=== PATIENT | male | born 1970 ===

== ENCOUNTER 2019-02-27 22:51 | Emergency (ER) | payer SELFPAY ==
[2019-02-27] MEDS ORDERED: HYDROCODONE/APAP 10/325 TABLET PO ONE (22:57)
--- NOTE | 2019-02-27 23:03 | Emergency Department Record ---
History of Present Illness - General Chief complaint: Extremity Problem Stated complaint: RT ANKLE INJURY Time Seen by Provider: 02/27/19 22:57 Source: Patient Mode of Arrival: Ambulatory Limitations: No limitations - History of Present Illness Initial comments: 48 yo male presents to ED for evaluation of right lateral ankle pain following injury that occurred when jumping down from a bench at home he was using for changing a light bulb. Patient denies injury to the foot or above the ankle. Patient has been unable to weight bear following injury, denies health problems other than recent hernia repair at his baseline. MD Complaint: Joint pain Onset/Timin -: Minutes(s) Location: Right, Ankle History of Same: No -: Yes Arthralgia Radiation: Proximal Quality: Aching Consistency: Constant Improves with: Nothing Worsens with: Palpation, Weight bearing Associated Symptoms: Denies other symptoms - Related Data Home Medications Medication Instructions Recorded Confirmed Last Taken No Home Med [NO HOME MEDS] 02/27/19 02/27/19 Unknown Allergies Allergy/AdvReac Type Severity Reaction Status Date / Time cephalexin [From Keflex] Allergy HIVES Verified 02/27/19 23:01 Review of Systems Constitutional: Denies: Chills, Fever, Malaise, Night sweats Eyes: Denies: Eye discharge, Eye pain ENT: Denies: Congestion, Ear pain, Epistaxis Respiratory: Denies: Cough, Dyspnea Cardiovascular: Denies: Chest pain, Dyspnea on exertion Endocrine: Denies: Fatigue, Heat or cold intolerance Gastrointestinal: Denies: Abdominal pain, Nausea, Vomiting Genitourinary: Denies: Incontinence, Retention Musculoskeletal: Reports: Arthralgia, Joint swelling. Denies: Back pain, Gout Skin: Denies: Bruising, Change in color Neurological: Denies: Abnormal gait, Confusion, Headache, Seizure Psychiatric: Denies: Anxiety Hematological/Lymphatic: Denies: Anemia, Blood Clots Physical Exam - General General Appearance: Alert, Oriented x3, Cooperative, Moderate distress Limitations: No limitations - Head Head exam: Atraumatic, Normocephalic, Normal inspection Head exam detail: negative: Abrasion, Contusion, Hawkins's sign, General tenderness, Hematoma, Laceration - Eye Eye exam: Normal appearance. negative: Conjunctival injection, Periorbital s welling, Periorbital tenderness, Scleral icterus - ENT Ear exam: negative: Auricular hematoma, Auricular trauma Nasal Exam: negative: Active bleeding, Discharge, Dried blood, Foreign body Mouth exam: negative: Drooling, Laceration, Muffled voice, Tongue elevation - Neck Neck exam: Normal inspection. negative: Meningismus, Tenderness - Respiratory Respiratory exam: Normal lung sounds bilaterally. negative: Rales, Respiratory distress, Rhonchi, Stridor - Cardiovascular Cardiovascular Exam: Regular rate, Normal rhythm, Normal heart sounds Peripheral Pulses: 3+: Dorsalis Pedis (R) - GI/Abdominal GI/Abdominal exam: Soft. negative: Rebound, Rigid, Tenderness - Rectal Rectal exam: Deferred - exam: Deferred - Extremities Extremities exam: Tenderness, Other (TTP over the lateral ankle, achilles intact, no pain over the foot on examination, no calf pain on examination.). negative: Calf tenderness, Pedal edema - Back Back exam: Denies: CVA tenderness (R), CVA tenderness (L) - Neurological Neurological exam: Alert, Normal gait, Oriented X3 - Psychiatric Psychiatric exam: Normal affect, Normal mood - Skin Skin exam: Normal color. negative: Abrasion Type of lesion: negative: abrasion Course Vital Signs 02/27/19 22:55 Pulse Rate [ 105 H Pulse Ox Probe] Respiratory 28 H Rate Blood Pressure 110/77 [Left Arm] Pulse Ox 98 - Reevaluation(s) Reevaluation #1: 02/27/19 23:32 Right Foot: No acute fracture Right Ankle: No acute fracture Patient was updated on his radiology results, will place in air splint with crutches as directed. With encouragement, the patient is able to dorsiflex/plantar flex the foot and ankle, achilles is intact. Counseled the patient re: ice and ibuprofen as needed for his symptoms. Patient appears stable for discharge at this time. Disposition Disposition: Discharge Clinical Impression: Right ankle sprain Qualifiers: Encounter type: initial encounter Involved ligament of ankle: anterior talofibular ligament Qualified Code(s): S93.491A - Sprain of other ligament of right ankle, initial encounter Disposition: Home, Self-Care Condition: (2) Stable Instructions: Ankle Sprain (ED) Additional Instructions: Return to ED if your symptoms worsen or if you have any concerns. Ibuprofen, Ice as directed. Air splint as directed. Follow-up with your family doctor in 3-5 days as directed. Forms: Patient Portal Access Time of Disposition: 23:34 Quality - Quality Measures Quality Measures: N/A - Blood Pressure Screening Does Patient Have Any of the Following: No Blood Pressure Classification: Normal BP Reading Systolic Measurement: 110 Diastolic Measurement: 77 Screening for High Blood Pressure: < Normal BP, F/U Not Required > [[id number]]
--- NOTE | 2019-02-28 13:19 | RADIOLOGY REPORT ---
EXAM: RIGHT ANKLE COMPLETE HISTORY: PAIN POST TWISTING INJURY. TECHNIQUE: Three views of the right ankle are obtained. Comparison: Same day three views of the right foot. Encounter: Initial. FINDINGS: There is normal bone mineralization. No acute fracture, dislocation or destructive bone lesion is seen. The ankle mortise joint is symmetric. The hindfoot and mid foot articulations are intact, to the extent visualized. No suspicious soft tissue abnormality. IMPRESSION: NO ACUTE FRACTURE NOR DISLOCATION IDENTIFIED. JOB NUMBER: [id number] [facility]
--- NOTE | 2019-02-28 13:22 | RADIOLOGY REPORT ---
EXAM: RIGHT FOOT, THREE VIEWS HISTORY: PAIN POST TWISTING INJURY. TECHNIQUE: Three views of the right foot were obtained. Comparison: Same day three views of the right ankle. Encounter: Initial. FINDINGS: There is normal bone mineralization. No convincing acute fracture, dislocation, or destructive bone lesion is seen. The articular relations are maintained. No focal soft tissue abnormality. IMPRESSION: NO ACUTE BONE NOR JOINT ABNORMALITY IDENTIFIED. JOB NUMBER: [id number] [facility]
== END 2019-02-27 23:55 | disposition home or self-care (01) ==
LOC: ER 22:51
DX: S93.491A Sprain of other ligament of right ankle, initial encounter (principal); M79.671 Pain in right foot; X50.0XXA Overexertion from strenuous movement or load, initial encounter; Y93.E9 Activity, other interior property and clothing maintenance; Y92.009 Unspecified place in unspecified non-institutional (private) residence as the place of occurrence of the external cause
CPT/HCPCS: 99284 ×2; 73610; 73630; J3490